=== PATIENT | female | born 1985 | race Caucasian/White ===

== ENCOUNTER 2017-11-10 10:13 | Inpatient (IN) | payer MEDICAID ==
[2017-11-10 11:24] LABS: RUPTURE FETAL MEMBRANES POSITIVE (NEGATIVE)
[2017-11-10] MEDS ORDERED: LIDOCAINE 1% (MPF) 30 ML INJ INJ (18:00)
[2017-11-10] MEDS ORDERED: BUTORPHANOL 2 MG INJ IV (18:00)
[2017-11-10] MEDS ORDERED: IBUPROFEN 600 MG TAB PO (18:00)
[2017-11-10] MEDS ORDERED: MISOPROSTOL 200 MCG TAB PR (18:00)
[2017-11-10] MEDS ORDERED: OXYTOCIN 30 UNITS/LR 500 ML IV ×2 (18:00)
[2017-11-10] MEDS ORDERED: CARBOPROST 250 MCG INJ IM (18:00)
[2017-11-10] MEDS ORDERED: METHYLERGONOVINE 0.2 MG INJ IM (18:00)
[2017-11-10 18:43] LABS: ADD MAN DIFF? NO
[2017-11-10 18:45] LABS: WHITE BLOOD COUNT 11.3 10^3/ul (4.8-10.8)
[2017-11-10 18:45] LABS: BASOPHILS % 0.4 % (0.0-2.0); EOSINOPHILS % 0.1 % (0.0-7.0); HEMATOCRIT 37.7 % (37.0-47.0); HEMOGLOBIN 12.5 g/dl (12.0-16.0); LYMPHOCYTES % 17.6 % (15.0-51.0); MEAN CORPUSCULAR HEMOGLOBIN 30.7 pg (29.0-33.0); MEAN CORPUSCULAR HGB CONC 33.2 g/dl (32.0-37.0); MEAN CORPUSCULAR VOLUME 92.6 fl (82.0-101.0); MEAN PLATELET VOLUME 12.3 fl (7.4-10.4); MONOCYTE # 0.7 10^3/ul (0.3-0.9); MONOCYTES % 6.3 % (0.0-11.0); NEUTROPHIL # 8.4 10^3/ul (1.6-7.5); NEUTROPHILS % 74.4 % (39.0-77.0); PLATELET COUNT 186 10^3/UL (140-415); RED BLOOD COUNT 4.07 10^6/ul (4.20-5.40); RED CELL DISTRIBUTION WIDTH 13.4 % (11.5-14.5)
[2017-11-10] MEDS: LACTATED RINGER'S 1,000 ML IV* (18:48)
[2017-11-10] MEDS: AMPICILLIN 2 GM/NS (PMX) 100 ML IV (18:50)
[2017-11-10 19:08] LABS: INR 0.92; PROTIME 12.4 Sec (11.9-14.9)
[2017-11-10 19:09] LABS: PARTIAL THROMBOPLASTIN TIME 26.1 Sec (25.0-35.0)
[2017-11-10 19:44] LABS: HEPATITIS B SURFACE ANTIGEN NEGATIVE (NEGATIVE)
[2017-11-10] MEDS: AMPICILLIN 1 GM/NS (PMX) 50 ML IV (23:54)
[2017-11-11] MEDS: OXYTOCIN 30 UNITS/LR 500 ML IV ×4 (00:45→21:27)
[2017-11-11] MEDS: LACTATED RINGER'S 1,000 ML IV* ×3 (02:04→12:23)
[2017-11-11] MEDS: AMPICILLIN 1 GM/NS (PMX) 50 ML IV ×4 (04:25→15:55)
[2017-11-11] MEDS ORDERED: FENTAnyl 2MCG/ML-ROPIV 0.2% 100 ML (09:12)
[2017-11-11] MEDS ORDERED: NALOXONE (0.4 MG/ML) INJ IV (09:30)
[2017-11-11] MEDS ORDERED: DIPHENHYDRAMINE 50 MG INJ IV (09:30)
[2017-11-11] MEDS: FENTAnyl 2MCG/ML-ROPIV 0.2% 100 ML BAG EPI (10:35)
[2017-11-11] MEDS: ONDANSETRON 4 MG INJ IV (15:26)
[2017-11-11 16:20] LABS: RAPID PLASMA REAGIN NONREACTIVE (NR)
[2017-11-11] MEDS ORDERED: ACETAMINOPHEN 325 MG TAB PO (19:00)
[2017-11-11] MEDS ORDERED: DIBUCAINE 1% 30 GM OINT PR (19:00)
[2017-11-11] MEDS ORDERED: ONDANSETRON 4 MG INJ IV (19:00)
[2017-11-11] MEDS ORDERED: HYDROCODONE/APAP (5/325) TAB PO (19:00)
[2017-11-11] MEDS ORDERED: OXYCODONE/ASPIRIN (4.88/325) TAB PO ×2 (19:00)
[2017-11-11] MEDS: SENNA/DOCUSATE NA (8.6MG/50MG) TAB PO (21:27)
[2017-11-11] MEDS: HYDROCODONE/APAP (5/325) TAB PO (22:58)
[2017-11-11] MEDS: BENZOCAINE 20% 56 ML SPRAY TOP (22:59)
[2017-11-11] MEDS: LANOLIN 7 GM TUBE TOP (22:59)
[2017-11-11] MEDS: WITCH HAZEL/GLYCERIN PAD PR (22:59)
[2017-11-11] MEDS: IBUPROFEN 600 MG TAB PO (23:47)
[2017-11-12] MEDS: IBUPROFEN 600 MG TAB PO ×3 (05:45→17:57)
[2017-11-12] MEDS: SENNA/DOCUSATE NA (8.6MG/50MG) TAB PO (09:47)
[2017-11-12 10:06] LABS: ADD MAN DIFF? NO
[2017-11-12 10:11] LABS: WHITE BLOOD COUNT 13.8 10^3/ul (4.8-10.8)
[2017-11-12 10:11] LABS: BASOPHILS % 0.3 % (0.0-2.0); EOSINOPHILS % 0.1 % (0.0-7.0); HEMATOCRIT 37.1 % (37.0-47.0); HEMOGLOBIN 12.4 g/dl (12.0-16.0); LYMPHOCYTES % 14.5 % (15.0-51.0); MEAN CORPUSCULAR HEMOGLOBIN 30.8 pg (29.0-33.0); MEAN CORPUSCULAR HGB CONC 33.4 g/dl (32.0-37.0); MEAN CORPUSCULAR VOLUME 92.3 fl (82.0-101.0); MEAN PLATELET VOLUME 12.3 fl (7.4-10.4); MONOCYTE # 0.9 10^3/ul (0.3-0.9); MONOCYTES % 6.2 % (0.0-11.0); NEUTROPHIL # 10.8 10^3/ul (1.6-7.5); NEUTROPHILS % 78.2 % (39.0-77.0); PLATELET COUNT 166 10^3/UL (140-415); RED BLOOD COUNT 4.02 10^6/ul (4.20-5.40); RED CELL DISTRIBUTION WIDTH 13.4 % (11.5-14.5)
[2017-11-13] MEDS: SENNA/DOCUSATE NA (8.6MG/50MG) TAB PO ×2 (00:23→08:04)
[2017-11-13] MEDS: IBUPROFEN 600 MG TAB PO ×3 (00:23→12:33)
[2017-11-13] MEDS: MEASLES,MUMPS,RUBELLA VACCINE INJ SC* (08:04)
== END 2017-11-13 14:10 | disposition home or self-care (01) | DRG 775 ==
LOC: OBT 10:13 → PP1 11-11 18:15 → L-D 10:13 → OBT 17:36 → L-D 17:36
PROVIDERS: Obstetrics & Gynecology
PROC: 10E0XZZ Delivery of Products of Conception, External Approach (ICD-10-PCS; principal; 2017-11-11)
DX: O80 Encounter for full-term uncomplicated delivery (principal); Z3A.38 38 weeks gestation of pregnancy; Z37.0 Single live birth
CPT/HCPCS: 62319; 76818; 84112; 85025; 85610; 85730; 86592; 86850; 86900; 86901; 87340